=== PATIENT | female | born 1965 ===

== ENCOUNTER → 2016-10-05 | Outpatient (CLI) | payer OTHER ==
[~2016-10-05] MED LIST: NEXIUM 40MG40 MG PO; PHENERGAN 25 TA25 MG PO
== END ==
LOC: MC.RAD 14:00
DX: Z12.31 Encounter for screening mammogram for malignant neoplasm of breast (principal); Z80.3 Family history of malignant neoplasm of breast

== ENCOUNTER → 2016-10-13 | Outpatient (CLI) | payer OTHER | LOC: COL.LAB 10:53 → ZLAB.FHCC 10:53 | DX: Z53.9 Procedure and treatment not carried out, unspecified reason (principal) ==

== ENCOUNTER → 2016-10-18 | Outpatient (CLI) | payer OTHER ==
[2016-10-18 11:40] LABS: HEMOGLOBIN 12.4 g/dl (12.5-16.0); MEAN CELL VOLUME 89 fl (80.0-100.0); MEAN CORPUSCULAR HEMOGLOBIN 29 pg (27.0-31.0); MEAN CORPUSCULAR HGB CONC 33 g/dl (33.0-37.0); MEAN PLATELET VOLUME 10.5 fl (7.4-10.4); PLATELET COUNT 313 K/mm3 (130-400); RED BLOOD COUNT 4.29 M/mm3 (4.10-5.30); REDCELL DISTRIBUTION WIDTH-CV 14.1 % (11.5-14.5); WHITE BLOOD COUNT 3.9 K/mm3 (4.8-10.8)
[2016-10-18 11:48] LABS: ADJUSTED CALCIUM 9.3 mg/dL (8.4-10.2); ALBUMIN 4.4 gm/dL (3.5-5.0); BILIRUBIN,TOTAL 0.6 mg/dL (0.0-1.0); CALCIUM 9.6 mg/dL (8.4-10.2); CREATININE, serum 0.57 mg/dL (0.52-1.25); POTASSIUM 4.3 mmol/L (3.4-5.0); TOTAL PROTEIN 8.9 gm/dL (6.4-8.2)
[2016-10-18 12:57] LABS: THYROID STIMULATING HORMONE 2.53 uIU/mL (0.465-4.680)
[2016-10-18 18:24] LABS: PH 5 (5-8); SQUAMOUS EPITHELIAL 0-2 /hpf; URINE APPEARANCE Clear; URINE BACTERIA None Seen /hpf; URINE BILIRUBIN Negative (NEGATIVE); URINE BLOOD 2+ (NEGATIVE); URINE COLOR Yellow; URINE GLUCOSE Negative (NEGATIVE); URINE KETONE Negative (NEGATIVE); URINE RBC 0-2 /hpf; URINE UROBILINOGEN Negative (NEGATIVE); URINE WBC 0-2 /hpf
[2016-10-21 19:31] LABS: HELICOBACTER IgG 4.18 OD Ratio (0.00-1.09)
[2016-11-15 08:51] LABS: OVA AND PARASITE EXAM SHIP/HC XXX
== END ==
LOC: ZLAB.FHCC 10:29 → COL.LAB 10:29
DX: R10.9 Unspecified abdominal pain (principal)

== ENCOUNTER 2016-11-26 13:43 | Day surgery (SDC) | payer OTHER ==
[~2016-11-26] VITALS: Ht 165.1 cm; Wt 66.8 kg
[2016-11-26 14:17] VITALS: BP 132/68; PULSE 94; TEMP 98.5
[2016-11-26 15:15] VITALS: BP 135/86; PULSE 93; TEMP 98.2
[2016-11-26 15:30] VITALS: BP 106/62; PULSE 89
[2016-11-26 15:45] VITALS: BP 110/69; PULSE 84
[2016-11-26 16:00] VITALS: BP 104/64; PULSE 73
== END 2016-11-26 16:15 | disposition home or self-care (01) ==
LOC: SDCO 13:43
DX: K30 Functional dyspepsia (principal); R11.2 Nausea with vomiting, unspecified; K92.0 Hematemesis; R10.9 Unspecified abdominal pain; R19.7 Diarrhea, unspecified
CPT/HCPCS: J2250; J3010; J7030

== ENCOUNTER → 2017-01-22 | Outpatient (CLI) | payer OTHER | LOC: COL.RAD 13:06 | DX: R51 Headache (principal) ==